=== PATIENT | female | born 1970 | race Caucasian/White ===

== ENCOUNTER 2023-10-13 10:04 | Outpatient (OUT) | payer BC, SELFPAY ==
[2023-10-13 10:31] LABS: Basophils Absolute Auto 0.1 10^3/uL (0.0-0.1); Basophils Percent Auto 0.8 % (0.2-2.0); Eosinophils Absolute Auto 0.1 10^3/uL (0.0-0.7); Hematocrit 43.9 % (36.0-48.0); Hemoglobin 14.5 g/dL (12.0-16.0); Immature Granulocytes Abs Auto 0.02 10^3/uL (0.00-0.03); Immature Granulocytes Pct Auto 0.3 % (0.0-0.5); Lymphocytes Absolute Auto 1.3 10^3/uL (1.2-3.8); Lymphocytes Percent Auto 21.4 % (20.5-60.0); Mean Corpuscular Volume 93.8 fL (81.0-99.0); Mean Platelet Volume 10.2 fL (9.5-13.5); Monocytes Absolute Auto 0.4 10^3/uL (0.3-0.8); Monocytes Percent Auto 6.4 % (1.7-12.0); Neutrophils Absolute Auto 4.3 10^3/uL (1.4-6.5); Neutrophils Percent Auto 70.1 % (43.0-75.0); Platelet Count 197 10^3/uL (150-450); Red Blood Count 4.68 10^6/uL (4.20-5.40); Red Cell Distribution Width 12.5 % (11.0-15.0); White Blood Count 6.1 10^3/uL (4.0-11.0)
[2023-10-13 10:32] LABS: Bilirubin Urine NEGATIVE (NEGATIVE); Blood Urine LARGE (NEGATIVE); Clarity Urine CLEAR (CLEAR); Color Urine LT. YELLOW (YELLOW); Glucose Urine UA NEGATIVE (NEGATIVE); Ketones Urine NEGATIVE (NEGATIVE); Leukocyte Esterase Urine TRACE (NEGATIVE); Nitrite Urine NEGATIVE (NEGATIVE); Protein Urine NEGATIVE (NEG/TRACE); Specific Gravity Urine 1.015 (1.005-1.025); Urobilinogen Urine 0.2 EU/dL (0.2-1.0); pH Urine 6.5 (5.0-9.0)
[2023-10-13 10:34] LABS: Urine Microscopic Indicated YES
[2023-10-13 11:02] LABS: Estimated Average Glucose 100 mg/dL; Glycohemoglobin A1C 5.1 % (4.5-6.2)
[2023-10-13 11:39] LABS: RBC Urine 20-50 #/HPF (0-2); WBC Urine 0-2 #/HPF (NONE SEEN)
[2023-10-13 11:40] LABS: Bacteria Urine TRACE #/HPF (NONE SEEN); Cast Seen? NONE SEEN #/LPF (NONE SEEN); Crystals Seen? None Seen #/HPF (None Seen); Mucus Urine TRACE (NONE SEEN); Squamous Epithelial Cell Urine FEW #/LPF (NONE/RARE); Transitional Epi Cells Urine FEW #/LPF (NONE SEEN)
[2023-10-13 11:57] LABS: Alanine Aminotransferase 26 U/L (14-59); Albumin Globulin Ratio 1.3; Albumin Level 4.2 g/dL (3.4-5.0); Alkaline Phosphatase 78 U/L (46-116); Anion Gap 14.6; Aspartate Amino Transferase 31 U/L (15-37); BUN Creatinine Ratio 15.1; Bilirubin Total 0.8 mg/dL (0.2-1.0); Calcium 9.1 mg/dL (8.5-10.1); Carbon Dioxide 28.5 mmol/L (21.0-32.0); Chloride 103 mmol/L (98-107); Chol HDL Ratio 1.9; Cholesterol 235 mg/dL (<=200); Estimated GFR (African America >60 (>=60); Estimated GFR (Non-African Ame >60 (>=60); Globulin 3.2 g/dL; Glucose 99 mg/dL (74-106); HDL Cholesterol 123 mg/dL (40-60); Potassium 4.1 mmol/L (3.5-5.1); Sodium 142 mmol/L (136-145); Thyroid Stimulating Hormone 2.573 uIU/mL (0.358-3.740); Total Protein 7.4 g/dL (6.4-8.2); Triglycerides 54 mg/dL (<=150); VLDL CHOLESTEROL 10.8 mg/dL
== END 2023-10-13 10:05 | disposition home or self-care (01) ==
LOC: LAB 10:09
PROVIDERS: PCP Nurse Practitioner; Visit Provider Nurse Practitioner
DX: Z00.00 Encounter for general adult medical examination without abnormal findings (principal)
CPT/HCPCS: 36415; 80053; 80061; 81001; 83036; 84443; 85025

== ENCOUNTER 2023-10-21 20:43 | Outpatient (REF) | payer BC, SELFPAY ==
[2023-10-27 11:11] LABS: Age Gdln ACOG Testing Note (.); HPV Aptima Negative (Negative); IGP, Aptima HPV, rfx 16/18,45 Note (.)
== END 2023-10-21 20:44 | disposition home or self-care (01) ==
LOC: LAB 20:43
PROVIDERS: PCP Nurse Practitioner; Visit Provider Nurse Practitioner
DX: Z01.419 Encounter for gynecological examination (general) (routine) without abnormal findings (principal)
CPT/HCPCS: 87624; 88175

== ENCOUNTER 2023-11-04 10:56 | Outpatient (OUT) | payer BC, SELFPAY ==
[2023-11-04 12:37] LABS: Bilirubin Urine NEGATIVE (NEGATIVE); Blood Urine LARGE (NEGATIVE); Clarity Urine CLEAR (CLEAR); Color Urine LT. YELLOW (YELLOW); Glucose Urine UA NEGATIVE (NEGATIVE); Ketones Urine NEGATIVE (NEGATIVE); Leukocyte Esterase Urine NEGATIVE (NEGATIVE); Nitrite Urine NEGATIVE (NEGATIVE); Protein Urine NEGATIVE (NEG/TRACE); Specific Gravity Urine <=1.005 (1.005-1.025); Urobilinogen Urine 0.2 EU/dL (0.2-1.0); pH Urine 6.5 (5.0-9.0)
[2023-11-04 12:47] LABS: Urine Microscopic Indicated YES
[2023-11-04 13:00] LABS: Mucus Urine NONE SEEN (NONE SEEN); Squamous Epithelial Cell Urine RARE #/LPF (NONE/RARE)
[2023-11-04 13:01] LABS: Bacteria Urine NONE SEEN #/HPF (NONE SEEN)
[2023-11-04 13:03] LABS: Cast Seen? NONE SEEN #/LPF (NONE SEEN); Crystals Seen? None Seen #/HPF (None Seen); WBC Urine 0-2 #/HPF (NONE SEEN)
== END 2023-11-04 10:57 | disposition home or self-care (01) ==
LOC: LAB 10:57
PROVIDERS: PCP Nurse Practitioner; Visit Provider Nurse Practitioner
DX: R39.9 Unspecified symptoms and signs involving the genitourinary system (principal)
CPT/HCPCS: 81001; 87086

== ENCOUNTER 2024-11-14 12:12 | Outpatient (OUT) | payer BC, SELFPAY ==
--- OUTSIDE RECORDS SUMMARY | 2024-11-09 08:43 | XMS_ITS | Encounter Summary ---
Author Organization [facility] tem Address [id number] [address] [place] [address] Care Team Providers Care Gem Cutter Name Role Phone Unavailable Primary Care Provider Unavailabl e Encounter Details Date Type Department Care Team (Latest Contact Info) Description 11/09/2024 8:43 AM EDT - 11/09/2024 11:59 PM EDT Hospital Encounter [facility] - [facility]amm[facility] [address] [place] [phone] Visit for screening mammogram Discharge Disposition: Home Social History Tobacco Use Types Packs/Day Years Used Date Smoking Tobacco: Never Assessed Childcare Answer Date Recorded Childcare Unknown 09/15/2018 Employment Answer Date Recorded Employment Unknown 09/15/2018 Comments No Sex and Gender Information Value Date Recorded Sex Assigned at Not on file Legal Sex Female 11:38 AM EDT Gender Identity Not on file Sexual Orientation Not on file documented as of this encounter Plan of Treatment Not on file documented as of this encounter Procedures Procedure Name Priority Date/Time Associated Diagnosis Comments MAMM SCREENING BILATERAL W CAD Routine 11/09/2024 9:00 AM EDT Visit for screening mammogram documented in this encounter Results * Mammography screening bilateral with CAD (11/09/2024 9:00 AM EDT) Anatomical Region Laterality Modality Breast Bilateral Mammography 11/09/2024 10:2 2 AM EDT Narrative 11/09/2024 10:32 AM EDT PAOLA EDWARDS 1970 [id number] EXAM: MAMM SCREENING BILATERAL W CAD, 11/09/2024 8:44 AM CLINICAL INDICATIONS: Screening, Visit for screening mammogram COMPARISON: 10/23/2022 and 10/27/2023 TECHNIQUE: Bilateral digital tomosynthesis MLO and CC views of the breasts were obtained, with creation of synthetic 2D views. Computer aided detection was utilized. FINDINGS: There are scattered areas of fibroglandular density. There are no suspicious masses, calcifications, or areas of architectural distortion. Stable postsurgical changes in the right breast IMPRESSION: No mammographic evidence of malignancy. BI-RADS: BI-RADS 2 - Benign RECOMMENDATION: Routine screening mammogram in 1 year. RISK ASSESSMENT: Tyrer-Cuzick score not calculated. The TC risk model does not apply to patients with a personal history of breast malignancy. Finalized by Brian Sanchez MD on 11/09/2024 10:32 AM 2 b MAMM 1 YR FDA Accredited Performing Facility: [facility] - Mammography/DEXA Imaging [address] [facility] [address] Procedure Note Brian Sanchez MD - 11/09/2024 PAOLA EDWARDS 1970 [id number] EXAM: MAMM SCREENING BILATERAL W CAD, 11/09/2024 8:44 AM CLINICAL INDICATIONS: Screening, Visit for screening mammogram COMPARISON: 10/23/2022 and 10/27/2023 TECHNIQUE: Bilateral digital tomosynthesis MLO and CC views of the breastswere obtained, with creation of synthetic 2D views. Computer aideddetection was utilized. FINDINGS: There are scattered areas of fibroglandular density. There are no suspicious masses, calcifications, or areas of architecturaldistortion. Stable postsurgical changes in the right breast IMPRESSION: No mammographic evidence of malignancy. BI-RADS: BI-RADS 2 - Benign RECOMMENDATION: Routine screening mammogram in 1 year. RISK ASSESSMENT: Tyrer-Cuzick score not calculated. The TC risk model does not apply topatients with a personal history of breast malignancy. Finalized by Brian Sanchez MD on 11/09/2024 10:32 AM 2 b MAMM 1 YR FDA Accredited Performing Facility: [facility] - Mammography/DEXA Imaging [address] [facility] [address] us Grace Iyer TRAVELING ELECTRICIAN-PLATE FURNACE OPERATOR IMG MAMMOGRAPHY ORDERAB LES Final Result documented in this encounter Visit Diagnoses Diagnosis Visit for screening mammogram documented in this encounter
--- OUTSIDE RECORDS SUMMARY | 2024-11-14 12:17 | XMS_ITS | Encounter Summary ---
Author Organization [facility] Address [facility] [place] [address] Care Team Providers Care Marine Pipe Welder Name Role Phone Low Hamilton MD Primary Care Provider [phone] Source Comments In the event this information is protected by the Federal Confidentiality of Alcohol and Drug AbusePatient Records regulations: The Federal rules restrict any use of the information to criminally investigate or prosecute any alcohol or drug abuse patient.[facility] Encounter Details Date Type Department Care Team (Latest Contact Info) Description 06/15/2018 H&P External-NonCCF Provider, External, PA-C Do not enter address information under generic External Provider. Social History Tobacco Use Types Packs/Day Years Used Date Smoking Tobacco: Former Cigarettes Q uit: 04/07/2013 Alcohol Use Standard Drinks/Week Comments Not Asked 0 (1 standard drink = 0.6 oz pur e alcohol) Comments No Sex and Gender Information Value Date Recorded Sex Assigned at Not on file Legal Sex Female 8:35 AM EST Gender Identity Not on file Sexual Orientation Not on file documented as of this encounter Functional Status * Are you deaf or do you have serious difficulty hearing? Answer Date of Assessment Author No 11/09/2014 2:42 PM EDT Chanel Díaz MA * Are you blind or do you have serious difficulty seeing, even when wearing glasses? Answer Date of Assessment Author No 11/09/2014 2:42 PM Chanel Last MA * Do you have serious difficulty walking or climbing stairs? Answer Date of Assessment Author No 11/09/2014 2:42 PM Chanel Last MA * Do you have difficulty dressing or bathing? Answer Date of Assessment Author No 11/09/2014 2:42 PM Chanel Last MA * Because of a physical, mental, or emotional condition, do you have difficulty doing errands alone such as visiting a doctor's office or shopping? Answer Date of Assessment Author No 11/09/2014 2:42 PM Chanel Last MA documented as of this encounter Mental Status * Because of a physical, mental, or emotional condition, do you have serious difficulty concentrating, remembering, or making decisions? Answer Entry Date Author No 11/09/2014 2:42 PM Chanel Last MA documented in this encounter Plan of Treatment Not on file documented as of this encounter Visit Diagnoses Not on filedocumented in this encounter Care Teams Marine Pipe Welder Relationship Specialty Start Date End Date Low Hamilton MD [address] [place] [address] PCP - General Family Medicine 06/22/17 documented as of this encounter
--- OUTSIDE RECORDS SUMMARY | 2024-11-14 12:17 | XMS_ITS | Encounter Summary ---
Author Organization [facility] Address [address] [place] [address] Care Team Providers Care Electrical Continuity Inspector Name Role Phone Low Hamilton MD Primary Care Provider [phone] Grace Iyer TRUCK BRACER Unavailable [phone] Encounter Details Date Type Department Care Team (Late st Contact Info) Description 11/08/2024 Refill [facility] [address] [place] [address] Grace Iyer, TRUCK BRACER [address] [place] [address] Major depressive disorder, recurrent, moderate (HCC) (Primary Dx); BETO (generalized anxiety disorder) Social History Tobacco Use Types Packs/Day Years Used Date Smoking Tobacco: Former Cigarettes 0.5 20 1 4 - 2013 Smokeless Tobacco: Never Alcohol Use Standard Drinks/Week Comments Not Currently 0 (1 standard drink = 0.6 oz pure alcohol) caffine:coffie 3cups daily and tea occasionally B1300 Health Literacy Answer Date Recor ded How often do you need to hav e someone help you when you read instructions, pamphlets, or other written material from your doctor or pharmacy? Never 12/23/2023 Social Connection and Isolation Panel [NHANES] A nswer Date Recorded In a typical week, how many times do you talk on the phone with family, friends, or neighbors? Once a week 12/23/2023 How often do you get togethe r with friends or relatives? Patient declined 12/23/2023 How often do you attend congregation or anabaptism serv ices? Patient declined 12/23/2023 Do you belong to any clubs o r organizations such as congregation groups, unions, fraternal or athletic groups, or school groups? Patient declined 12/23/2023 How often do you attend meet ings of the clubs or organizations you belong to? Patient declined 12/23/2023 Are you , , di vorced, , never , or living with a partner? 12/23/2023 AUDIT-C Answer Date Recorded Q1: How often do you have a drink containing alc ohol? Monthly or less 12/23/2023 Q2: How many drinks containi ng alcohol do you have on a typical day when you are drinking? 1 or 2 12/23/2023 Q3: How often do you have si x or more drinks on one occasion? Never 12/23/2023 Overall Financial Resource Strain (CARDIA) Answe r Date Recorded How hard is it for you to pa y for the very basics like food, housing, medical care, and heating? Patient declined 12/23/2023 PHQ-2 Answer Date Recorded Patient Health Questionnaire-2 Score 1 06/29/2023 [facility] of Occupat ional Health - Occupational Stress Questionnaire Answer Date Recorded Do you feel stress - tense, restless, nervous, or anxious, or unable to sleep at night because your mind is troubled all the time - these days? Rather much 12/23/2023 Exercise Vital Sign Answer Date Recorde d On average, how many days pe r week do you engage in moderate to strenuous exercise (like a brisk walk)? 3 days On average, how many minutes do you engage in exercise at this level? Patient declined 12/23/2023 Hunger Vital Sign Answer Date Recorded Within the past 12 months, y ou worried that your food would run out before you got the money to buy more. Patient declined Within the past 12 months, t he food you bought just didn't last and you didn't have money to get more. Patient declined PRAPARE - Transportation Answer Date Re corded In the past 12 months, has l ack of transportation kept you from medical appointments or from getting medications? No 12/05 In the past 12 months, has l ack of transportation kept you from meetings, work, or from getting things needed for daily living? No 12/23/2023 Housing Stability Vital Sign Answer Dmitriy e Recorded In the last 12 months, was t here a time when you were not able to pay the mortgage or rent on time? No 12/23/2023 Number of Times Moved in the Last Year Not on fi le 12/23/2023 At any time in the past 12 m [facility] [place], were you homeless or living in a fdc (including now)? No 12/23/2023 Comments Unknown Sex and Gender Information Value Date Recorded Sex Assigned at Not on file Legal Sex Female 7:26 PM EDT Gender Identity Not on file Sexual Orientation Not on file documented as of this encounter Plan of Treatment Upcoming Encounters Date Type Department Care Team (Late st Contact Info) Description 11/21/2024 6:00 PM EDT Office Visit [facility] [address] [place] [address] Grace Iyer NP [address] [place] [phone] documented as of this encounter Goals Goal Patient Goal Type Associated Problems Recent Progress Patient-Stated? Author Help patient manage antidepressant medication Care Plan Patient on antidepressant monitoring plan Lynne Barry Baseline PHQ-9 Care Plan Baseline PHQ-9 Lynne Barry documented as of this encounter Visit Diagnoses Diagnosis Major depressive disorder, recurrent, moderate (HCC)- Primary Major depressive disorder, recurrent episode, moderate BETO (generalized anxiety disorder) Generalized anxiety disorder documented in this encounter Additional Health Concerns Active Problems Noted Date Diagnosed Date Patient on antidepressant monitoring plan 2024 Baseline PHQ-9 08/08/2024 documented as of this encounter Care Teams Electrical Continuity Inspector Relationship Specialty Start Date End Date Low Hamilton MD [address] [place] [phone] PCP - General Family Medicine 05/12/23 Grace Iyer NP [address] [place] [address] PCP - [place] Commercial 07/06/23 documented as of this encounter
--- OUTSIDE RECORDS SUMMARY | 2024-11-14 12:17 | XMS_ITS | Encounter Summary ---
Author Organization [facility] Address [address] [place] [address] Care Team Providers Care Wedding Day Coordinator Name Role Phone Low Hamilton MD Primary Care Provider [phone] Grace Iyer COOKY MACHINE OPERATOR Unavailable [phone] Reason for Visit * Reason Comments Med Refill Encounter Details Date Type Department Care Team (Late st Contact Info) Description [facility] [address] [place] [address] Low Hamilton MD [address] [place] [address] Psoriasis, unspecified ; Other psoriasis Social History Tobacco Use Types Packs/Day Years Used Date Smoking Tobacco: Former Cigarettes 0.5 20 1 4 - 2013 Smokeless Tobacco: Never Alcohol Use Standard Drinks/Week Comments Not Currently 0 (1 standard drink = 0.6 oz pure alcohol) caffine:coffie 3cups daily and tea occasionally PHQ-2 Answer Date Recorded Patient Health Questionnaire-2 Score 1 06/29/2023 Comments Unknown Sex and Gender Information Value Date Recorded Sex Assigned at Not on file Legal Sex Female 7:26 PM EDT Gender Identity Not on file Sexual Orientation Not on file documented as of this encounter Miscellaneous Notes * Telephone Encounter - Lynne So - 12/15/2023 1:56 PM EDT Patient said she use to have a prescription for clobetasol 0.05% scalp solution through Dr. Duran would like another order. AN documented in this encounter Plan of Treatment Upcoming Encounters Date Type Department Care Team (Late st Contact Info) Description 11/21/2024 6:00 PM EDT Office Visit [facility] [address] [place] [address] Grace Iyer NP [address] [place] [address] documented as of this encounter Visit Diagnoses Diagnosis Psoriasis, unspecified Other psoriasis Other psoriasis documented in this encounter Care Teams Wedding Day Coordinator Relationship Specialty Start Date End Date Low Hamilton MD [address] [place] [phone] PCP - General Family Medicine 05/12/23 Grace Iyer NP [address] [place] [address] PCP - Nasrin Romero 07/06/23 documented as of this encounter
--- OUTSIDE RECORDS SUMMARY | 2024-11-14 12:17 | XMS_ITS | Encounter Summary ---
Author Organization [facility] Address [address] [place] [address] Care Team Providers Care Senior Corporate Strategy Manager Name Role Phone Low Hamilton MD Primary Care Provider [phone] Grace Iyer BAT CARRIER Unavailable [phone] Encounter Details Date Type Department Care Team (Late st Contact Info) Description 11/09/2024 External Result [facility] [address] [place] [address] Grace Iyer, SIVAN [address] [place] [address] Social History Tobacco Use Types Packs/Day Years Used Date Smoking Tobacco: Former Cigarettes 0.5 20 2013 Smokeless Tobacco: Never Alcohol Use Standard [...] declined 12/23/2023 How often do you attend mosque or faith serv ices? Patient declined 12/23/2023 Do you belong to any clubs o r organizations such as mosque groups, unions, fraternal or athletic groups, or [...] Recorded Patient Health Questionnaire-2 Score 1 06/29/2023 [facility] of Occupat ional [facility] - Occupational Stress Questionnaire Answer Date Recorded [...] any time in the past 12 m [facility], were you homeless or living in a residential (including now)? No 12/23/2023 Comments Unknown Sex and Gender Information Value Date Recorded Sex Assigned at Not on file Legal Sex Female 7:26 PM EDT Gender Identity Not on file Sexual Orientation Not on file documented as of this encounter Plan of Treatment Upcoming Encounters Date Type Department Care Team (Late st Contact Info) Description 11/21/2024 6:00 PM EDT Office Visit [facility] [address] [place] [address] Grace Iyer, SIVAN [address] [place] [address] documented as of this encounter Goals Goal Patient Goal Type Associated Problems Recent Progress Patient-Stated? Author Help patient manage antidepressant medication Care Plan Patient on antidepressant monitoring plan Lynne Barry Baseline PHQ-9 Care Plan Baseline PHQ-9 Lynne Barry documented as of this encounter Procedures Procedure Name Priority Date/Time Associated Diagnosis Comments BI MAMMOGRAM SCREENING TOMOSYNTHESIS BILATERAL 11/09/2024 10:33 AM EDT documented in this encounter Results * Bilateral screening mammogram with tomosynthesis (11/09/2024 10:33 AM EDT) Anatomical Region Laterality Modality Breast Bilateral Mammography 11/09/2024 10:3 3 AM EDT Narrative 11/09/2024 10:32 AM EDT [facility] [id number] EXAM: MAMM SCREENING BILATERAL W CAD, 11/09/2024 [...] 10:32 AM 2 b MAMM 1 YR [facility] Accredited Performing Facility: [facility] - Mammography/DEXA Imaging [address] [facility] [address] Procedure Note Radiology, Radiologist, - 11/09/2024 THIS EXAM WAS PERFORMED AT [facility] 1972 [id number] EXAM: MAMM SCREENING BILATERAL W CAD, 11/09/2024 [...] 10:32 AM 2 b MAMM 1 YR [facility] Accredited Performing Facility: [facility] - Mammography/DEXA Imaging [address] [facility] [address] Grace Iyer BAT CARRIER IMG BI PROCEDURES Final Result documented in this encounter Visit Diagnoses Not on filedocumented in this encounter Additional Health Concerns Active Problems Noted Date Diagnosed Date Patient on antidepressant monitoring plan 2024 Baseline PHQ-9 08/08/2024 documented as of this encounter Care Teams Senior Corporate Strategy Manager Relationship Specialty Start Date End Date Low Hamilton MD [address] [place] [address] PCP - General Family Medicine 05/12/23 Grace Iyer NP [address] [place] [address] PCP - [place] Commercial 07/06/23 documented as of this encounter
--- OUTSIDE RECORDS SUMMARY | 2024-11-14 12:17 | XMS_ITS ---
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 Past Treatment and Therapy Plans NON-CHEMO 1 Plan Name Start Date Discontinue Date Treatment Medications Discontinue Reason Plan Provider Cycles NS 500ML IV DURING VISIT 06/09/2013 No medications scheduled. Treatment Complete Aaron Watts MD 1 of 1 cycle started ONCOLOGY REGIMEN Plan Name Start Date Discontinue Date Treatment Medications Discontinue Reason Plan Provider Cycles TRASTUZUMAB 11/09 D1 - Q21D 4 trastuzumab iv piggyback (HERCEPTIN) Treatment Complete Aaron Watts MD 2 of 2 cycles started
--- OUTSIDE RECORDS SUMMARY | 2024-11-14 12:17 | XMS_ITS | Clinical Summary ---
Author Organization [facility] Address [facility] [place] [address] Care Team Providers Care Hostage Negotiator Name Role Phone Low Hamilton MD Primary Care Provider [phone] Allergies No known active allergies Medications CALCIUM ORAL Take by mouth. Active MULTIVITAMIN ORAL Take by mouth. Active Cyanocobalamin (VITAMIN B-12) 1,000 mcg subl Dissolve under the tongue. Active tamoxifen (NOLVADEX) 20 mg tabletIndicatio ns:DCIS (ductal carcinoma in situ),Nausea Take 1 tablet by mouth once daily. 30 tablet 11 06/23/2014 Active magnesium (MAGNACAPS) 100 mg capIndications: Leg swelling Take 100 mg by mouth once daily. 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 Social History Tobacco Use Types Packs/Day Years [...] on file Sexual Orientation Not on file Last Filed Vital Signs Vital Sign Reading Time Taken Comments Blood Pressure 130/82 11/09/2014 2:42 PM EDT Pulse 75 10/02/2014 1:28 PM EDT Temperature 36.9 C (98.4 F) 10/02/2014 1:28 PM EDT Respiratory Rate 20 05/18/2014 1:33 PM EST Oxygen Saturation 97% 05/18/2014 1:33 PM EST Inhaled Oxygen Concentration - - Weight 68 kg (150 lb) 11/09/2014 2:42 PM EDT Height 166.4 cm (5' 5.51 ) 11/09/2014 2:42 PM ED T Body Mass Index 24.57 11/09/2014 2:42 PM EDT Plan of Treatment Health Maintenance Due Date Last Done Comments Anxiety Screening 02/06/1990 Depression Screening 02/06/1990 HIV Screening 02/06/1990 Hepatitis C Screening 02/06/1990 DTaP,Tdap,Td Vaccine (1 - Tdap) 02/06/1991 Hepatitis B Vaccine (1 of 3 - 19+ 3-dose series) 02/06 Cervical Cancer Screening 02/06/[address] Colonography 02/06/2017 Cologuard (FIT-DNA) 02/06/2017 Colonoscopy 02/06/2017 Colorectal Cancer Screening 02/06/2017 Diabetes Screening 02/06/2017 Fecal Occult Blood 02/06/2017 Lipid Screening 02/06/2017 Sigmoidoscopy 02/06/2017 Pneumococcal Vaccine: 50+ (1 of 1 - PCV) 02/06/2022 Shingrix Vaccine (1 of 2) 02/06/2022 Influenza Vaccine (#1) 2024 Care Teams Hostage Negotiator Relationship Specialty Start Date End Date Low Hamilton MD [address] [place] [address] PCP - General Family Medicine 06/22/17
--- OUTSIDE RECORDS SUMMARY | 2024-11-14 12:17 | XMS_ITS | Encounter Summary ---
Author Organization [facility] Address [address] [place] [address] Care Team Providers Care Lumber Bearer Name Role Phone Low Hamilton MD Primary Care Provider [phone] Grace Iyer COMMISSIONER OF CONCILIATION Unavailable [phone] Reason for Visit * Reason Comments Med Refill Encounter Details Date Type Department Care Team (Late st Contact Info) Description 12/28/2023 Refill [facility] [address] [place] [address] Low Hamilton MD [address] [place] [address] Social History Tobacco Use Types Packs/Day Years [...] declined 12/23/2023 How often do you attend evangelical or anabaptism serv ices? Patient declined 12/23/2023 Do you belong to any clubs o r organizations such as evangelical groups, unions, fraternal or athletic groups, or [...] Recorded Patient Health Questionnaire-2 Score 1 06/29/2023 [facility] of Occupat ional [facility] - Occupational Stress Questionnaire Answer Date Recorded [...] any time in the past 12 m [facility], were you homeless or living in a [...] Office Visit [facility] [address] [place] [address] Grace Iyer NP [address] [place] [address] documented as of this encounter Visit Diagnoses Not on filedocumented in this encounter Care Teams Lumber Bearer Relationship Specialty Start Date End Date Low Hamilton MD [address] [place] [phone] PCP - General Family Medicine 05/12/23 Grace Iyer NP [address] [place] [address] PCP - [place] Commercial 07/06/23 documented as of this encounter
--- OUTSIDE RECORDS SUMMARY | 2024-11-14 12:17 | XMS_ITS | Encounter Summary ---
Author Organization [facility] Address [address] [place] [address] Care Team Providers Care Crew Scheduler Name Role Phone Low Hamilton MD Primary Care Provider [phone] Grace Iyer FLOOR WORKER Unavailable [phone] Encounter Details Date Type Department Care Team (Late st Contact Info) Description 12/24/2023 Orders Only [facility] [address] [place] [id number] Scarlet Caal MD [address] [place] [address] Social History Tobacco Use Types Packs/Day Years Used Date Smoking Tobacco: Former Cigarettes 0.5 20 1 2013 Smokeless Tobacco: Never Alcohol Use Standard [...] declined 12/23/2023 How often do you attend gnosticism or cheondoism serv ices? Patient declined 12/23/2023 Do you belong to any clubs o r organizations such as gnosticism groups, unions, fraternal or athletic groups, or [...] Recorded Patient Health Questionnaire-2 Score 1 06/29/2023 [facility] - Occupational Stress Questionnaire Answer [...] any time in the past 12 m [facility], were you homeless or living in a correction (including now)? No 12/23/2023 Comments Unknown Sex [...] Office Visit [facility] [address] [place] [address] Grace Iyer NP [address] [place] [address] documented as of this encounter Procedures Procedure Name Priority Date/Time Associated Diagnosis Comments SCANNED LABS Routine 12/24/2023 1:27 PM EDT documented in this encounter Results * SCANNED LABS (12/24/2023 1:27 PM EDT) us Scarlet Caal MD LAB CHG PERFORMABLES Final Res ult documented in this encounter Visit Diagnoses Not on filedocumented in this encounter Care Teams Crew Scheduler Relationship Specialty Start Date End Date Low Hamilton MD [address] [place] [address] PCP - General Family Medicine 05/12/23 Grace Iyer NP [address] [place] [address] PCP - [place] [employer] 07/06/23 documented as of this encounter
--- OUTSIDE RECORDS SUMMARY | 2024-11-14 12:17 | XMS_ITS | Encounter Summary ---
Author Organization [facility] Address [address] [place] [address] Care Team Providers Care Daycare Assistant Name Role Phone Low Hamilton MD Primary Care Provider [phone] Grace Iyer EMERGING TECHNOLOGIES DIRECTOR Unavailable [phone] Encounter Details Date Type Department Care Team (Late st Contact Info) Description 11/07[facility]2024 [facility] [address] [place] [address] Grace Iyer, EMERGING TECHNOLOGIES DIRECTOR [address] [place] [address] Social History Tobacco Use Types Packs/Day Years [...] declined 12/23/2023 How often do you attend tenriism or protestant serv ices? Patient declined 12/23/2023 Do you belong to any clubs o r organizations such as tenriism groups, unions, fraternal or athletic groups, or [...] Recorded Patient Health Questionnaire-2 Score 1 06/29/2023 [facility] ional [facility] - Occupational Stress Questionnaire Answer Date [...] in the past 12 m [facility], were you homeless or living in a fdc (including now)? No 12/23/2023 Comments Unknown Sex and Gender Information Value Date Recorded Sex Assigned at Not on file Legal Sex Female 7:26 PM EDT Gender Identity Not on file Sexual Orientation Not on file documented as of this encounter Miscellaneous Notes * Telephone Encounter - LUCERO VU - 11/07/2024 8:00 AM EDT Text Transport Aircrewman Good afternoon. This is Paola Grace calling. I am calling to ask Grace about helping my medication on my pros. I just figured that I would give you guys a call and hopefully somebody can reach back out to me. My number is [phone] and my date of is [phone]. Thank you. documented in this encounter Plan of Treatment Upcoming Encounters Date Type Department Care Team (Late st Contact Info) Description 11/21/2024 6:00 PM EDT Office Visit [facility] [address] [place] [address] Grace Iyer NP [address] [place] [address] documented as of this encounter Goals Goal [...] documented as of this encounter Care Teams Daycare Assistant Relationship Specialty Start Date End Date Low Hamilton MD [address] [place] [address] PCP - General Family Medicine 05/12/23 Grace Iyer NP [address] [place] [address] PCP - [place] [employer] 07/06/23 documented as of this encounter
--- OUTSIDE RECORDS SUMMARY | 2024-11-14 12:17 | XMS_ITS | Encounter Summary ---
Author Organization [employer] [facility] Address [id number] [address] [place] [address] Care Team Providers Care Refinery Operator Gas Plant Name Role Phone Unavailable Primary Care Provider Unavailabl e Encounter Details Date Type Department Care Team (Latest Contact Info) Description 11/09/2024 Travel Social History Tobacco Use Types Packs/Day Years [...]
--- OUTSIDE RECORDS SUMMARY | 2024-11-14 12:17 | XMS_ITS | Encounter Summary ---
Author Organization [facility] Address [address] [place] [address] Care Team Providers Care Clip On Sunglasses Assembler Name Role Phone Low Hamilton MD Primary Care Provider [phone] Grace Iyer MOHS SURGEON/GENERAL DERMATOLOGIST Unavailable [phone] Encounter Details Date Type Department Care Team (Late Contact Info) Description 10/27/2023 External Result Encounter [facility] [address] [place] [address] Grace Iyer, SIVAN [address] [place] [address] Social History Tobacco Use Types Packs/Day Years [...] Encounters Date Type Department Care Team (Late Contact Info) Description 11/21/2024 6:00 PM EDT Office Visit [facility] [address] [place] [address] Grace Iyer, SIVAN [address] [place] [address] documented as of this encounter Procedures Procedure Name Priority Date/Time Associated Diagnosis Comments BI MAMMOGRAM SCREENING TOMOSYNTHESIS BILATERAL 10/27/2023 2:50 PM EDT documented in this encounter Results * Bilateral screening mammogram with tomosynthesis (10/27/2023 2:50 PM EDT) Anatomical Region Laterality Modality Breast Bilateral Mammography 10/27/2023 2:50 PM EDT Narrative 10/27/2023 2:49 PM EDT THIS EXAM WAS PERFORMED AT [facility] EXAM: MAMM SCREENING BILATERAL W CAD, 10/27/2023 1:13 PM CLINICAL INDICATIONS: Screening, Visit for screening mammogram. Right lumpectomy. COMPARISON: Multiple prior mammograms were viewed for comparison dating back to 02/10/2014 TECHNIQUE: Bilateral digital tomosynthesis MLO and CC views of the breasts were obtained, with creation of synthetic 2D views. Computer aided detection was utilized. FINDINGS: There are scattered areas of fibroglandular density. There are no suspicious masses, calcifications, or areas of architectural distortion. Stable posttreatment changes in the right breast. IMPRESSION: No mammographic evidence of malignancy. BI-RADS: BI-RADS 2 - Benign Recommendation: Routine screening mammogram in 1 year. Please consider supplemental screening with annual breast MRI alternating every 6 months with annual screening mammogram given personal history of breast cancer before the age of 50. Finalized by Shima De Paz MD on 10/27/2023 2:49 PM 2 b MAMM 1 YR Procedure Note Radiology, Radiologist, - 10/27/2023 THIS EXAM WAS PERFORMED AT [facility] EXAM: MAMM SCREENING BILATERAL W CAD, 10/27/2023 1:13 PM CLINICAL INDICATIONS: Screening, Visit for screening mammogram. Rightlumpectomy. COMPARISON: Multiple prior mammograms were viewed for comparison datingback to 02/10/2014 TECHNIQUE: Bilateral digital tomosynthesis MLO and CC views of the breasts wereobtained, with creation of synthetic 2D views. Computer aided detectionwas utilized. FINDINGS: There are scattered areas of fibroglandular density. There are no suspicious masses, calcifications, or areas of architecturaldistortion. Stable posttreatment changes in the right breast. IMPRESSION: No mammographic evidence of malignancy. BI-RADS: BI-RADS 2 - Benign Recommendation: Routine screening mammogram in 1 year. Please consider supplemental screening with annual breast MRI alternatingevery 6 months with annual screening mammogram given personal history ofbreast cancer before the age of 50. Finalized by Shima De Paz MD on 10/27/2023 2:49 PM 2 b MAMM 1 YR us Grace Iyer NP IMG BI PROCEDURES Final Result documented in this encounter Visit Diagnoses Not on filedocumented in this encounter Care Teams Clip On Sunglasses Assembler Relationship Specialty Start Date End Date Low Hamilton MD [address] [place] [address] PCP - General Family Medicine 05/12/23 Grace Iyer NP [address] [place] [address] PCP - Nasrin Romero 07/06/23 documented as of this encounter
--- OUTSIDE RECORDS SUMMARY | 2024-11-14 12:17 | XMS_ITS | Encounter Summary ---
Author Organization [facility] Address [facility] [place] [address] Care Team Providers Care Spectacle Truer Name Role Phone Low Hamilton MD Primary Care Provider [phone] Source Comments In the event this information is protected by the Federal Confidentiality of Alcohol and Drug AbusePatient Records regulations: The Federal rules restrict any use of the information to criminally investigate or prosecute any alcohol or drug abuse patient.[facility] Encounter Details Date Type Department Care Team (Latest Contact Info) Description 12/03/2017 H&P External-NonCCF Provider, External, PA-C Do not [...] on filedocumented in this encounter Care Teams Spectacle Truer Relationship Specialty Start Date End Date Low Hamilton MD [address] [place] [address] PCP - General Family Medicine 06/22/17 documented as of this encounter
--- OUTSIDE RECORDS SUMMARY | 2024-11-14 12:17 | XMS_ITS | Encounter Summary ---
Author Organization [facility] Address [address] [place] [address] Care Team Providers Care Headliner Installer Name Role Phone Low Hamilton MD Primary Care Provider [phone] Grace Iyer LEAVE MANAGER Unavailable [phone] Encounter Details Date Type Department Care Team (Late st Contact Info) Description 12/28/2023 Orders Only [facility] [address] [place] [phone] Scarlet Caal MD [address] [place] [address] Social History Tobacco Use Types Packs/Day Years [...] declined 12/23/2023 How often do you attend denominational or sabianist serv ices? Patient declined 12/23/2023 Do you belong to any clubs o r organizations such as denominational groups, unions, fraternal or athletic groups, or [...] Recorded Patient Health Questionnaire-2 Score 1 06/29/2023 [facility] of Occupat ional [facility] - Occupational Stress Questionnaire Answer Date [...] any time in the past 12 m [facility], were you homeless or living in a prison (including now)? No 12/23/2023 Comments Unknown Sex [...] Office Visit [facility] [address] [place] [address] Grace Iyer NP [address] [place] [address] documented as of this encounter Procedures Procedure Name Priority Date/Time Associated Diagnosis Comments SCANNED LABS Routine 12/28/2023 11:25 AM EDT documented in this encounter Results * SCANNED LABS (12/28/2023 11:25 AM EDT) us Scarlet Caal MD LAB CHG PERFORMABLES Final Res ult documented in this encounter Visit Diagnoses Not on filedocumented in this encounter Care Teams Headliner Installer Relationship Specialty Start Date End Date Low Hamilton MD [address] [place] [address] PCP - General Family Medicine 05/12/23 Grace Iyer NP [address] [place] [address] PCP - [employer] 07/06/23 documented as of this encounter
--- OUTSIDE RECORDS SUMMARY | 2024-11-14 12:17 | XMS_ITS | Clinical Summary ---
Author Organization [facility] Address [address] [place] [address] Care Team Providers Care Bass Mechanism Maker Name Role Phone Low Hamilton MD Primary Care Provider [phone] Grace Iyer LAYER OFF Unavailable [phone] Allergies Active Allergy Reactions Criticality Noted Date Comments Azithromycin Diarrhea Medium 05/13/2023 Medications Calcium Carbonate (CALCIUM 500 PO) Take 1 tablet by mouth 1 (one) time each day Active MULTIPLE VITAMINS-IRON PO Take by mouth Active cyanocobalamin (Vitamin B-12) 100 MCG tablet Take 100 mcg by mouth in the morning. Active oxybutynin XL (Ditropan-XL) 5 MG 24 hr tablet Take 5 mg by mouth Daily 4 Active clobetasol (Temovate) 0.05 % external solutionIndicat ions:Psoriasis/ like disorders Apply topically 2 (two) times a day to affected area 50 mL 2 4 Active ALPRAZolam (Xanax) 0.5 MG tabletIndicatio ns:BETO (generalized anxiety disorder) Take 1 tablet (0.5 mg) by mouth every 12 (twelve) hours if needed for anxiety for up to 10 days 20 tablet 5 Active traZODone (Desyrel) 50 MG tabletIndicatio ns:Insomnia due to medical condition Take 1 tablet (50 mg) by mouth as needed at bedtime for sleep 90 tablet 1 5 01/09/20 25 Active FLUoxetine (PROzac) 10 MG capsuleIndicati ons:BETO (generalized anxiety disorder),Major depressive disorder, recurrent, moderate (HCC) Take 1 capsule (10 mg) by mouth Daily Total dose is 30mg daily 30 capsule 1 5 12/09/19 25 Active FLUoxetine (PROzac) 20 MG capsuleIndicati ons:BETO (generalized anxiety disorder),Major depressive disorder, recurrent, moderate (HCC) Take 1 capsule (20 mg) by mouth Daily Total dose is 30mg daily 30 capsule 1 5 12/09/19 25 Active FLUoxetine (PROzac) 20 MG capsuleIndicati ons:BETO (generalized anxiety disorder),Major depressive disorder, recurrent, moderate (HCC) Take 1 capsule (20 mg) by mouth Daily 30 capsule 1 5 11/09/19 25 Discontinu ed(Reorder ) Active Problems Problem Noted Date Diagnosed Date Major depressive disorder, recurrent, moderate 0 07/07/2024 Assessment & Plan (10/10/2024 6:38 AM EDT): Current meds: sertraline and prn xanax At last appt we added 50mg dose sertraline at evening time for a total of 150mg daily Assessment & Plan (07/07/2024 1:34 PM EDT): Current meds: sertraline and prn xanax PHQ 9=8 Add 50mg dose sertraline at evening time COVID 05/16/2024 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 OAB (overactive bladder) 01/05/2024 Assessment & Plan (07/07/2024 1:16 PM EDT): Oxybutynin XL is working well Sees urology for this Microscopic hematuria 11/04/2023 Assessment & Plan (01/05/2024 3:49 PM EDT): Continue with urology Encntr for coal chemist exam (general) (routine) w/o abn findings 10/21/2023 Assessment & Plan (10/21/2023 11:39 AM EDT): Reviewed Ht/Wt/BMI Recommend eye exam yearly Recommend dental exams twice a year Fu per PAP indications Monthly BSE K Y lubricant for dysparuina Exercises is recommended most days of the week Follow up yearly and prn Menopausal vasomotor syndrome 10/21/2023 Assessment & Plan (10/21/2023 11:38 AM EDT): No estrogen d/t breast cancer Offered lexapro or effexor off label Or gabapentin She will think about it Screening mammogram for breast cancer 09/28/2023 Assessment & Plan (09/28/2023 2:03 PM EDT): Due 10/24/23 at [facility] examination 09/28/2023 Assessment & Plan (10/10/2024 6:41 AM EDT): Reviewed Ht/Wt/BMI Recommend eye exam yearly Recommend dental exams twice a year Balance work/leisure activities Exercises is recommended most days of the week (appropriate as chronic conditions allow) Follow up yearly and prn Assessment & Plan (09/28/2023 2:03 PM EDT): Reviewed Ht/Wt/BMI Recommend eye exam yearly Recommend dental exams twice a year Balance work/leisure activities Exercises is recommended most days of the week (appropriate as chronic conditions allow) Follow up yearly and prn Insomnia due to medical condition 08/03/2023 Assessment & Plan (10/10/2024 6:37 AM EDT): Meds: trazodone uses prn Uses it 2-3 times per week Assessment & Plan (07/07/2024 1:15 PM EDT): Meds: trazodone uses prn Uses it 2-3 times per week Assessment & Plan (01/05/2024 3:49 PM EDT): Improving, will use prn trazadone Assessment & Plan (09/28/2023 2:03 PM EDT): Overall feels that trazodone is helping, some nights not, but overall feels no dose change needed Assessment & Plan (08/03/2023 2:37 PM EDT): Will add trazodone, may take nightly or prn Advised of how med works and monitor for worsening in mood/depression BETO (generalized anxiety disorder) 05/13/2023 Assessment & Plan (10/10/2024 6:38 AM EDT): Current meds: sertraline and prn xanax a few times per month Med agreement signed: 07/07/24 Last appt increased to total of 150mg sertraline Assessment & Plan (07/07/2024 1:34 PM EDT): Current meds: sertraline and prn xanax a few times per month, from last refill has about 6 pills left BETO 7=13 Med agreement signed: 07/07/24 Add 50mg sertraline at evening 3 months Assessment & Plan (01/05/2024 3:50 PM EDT): Rare use of benzo, cont SSRI Fu in 6 months Assessment & Plan (09/28/2023 2:03 PM EDT): No changes in meds/doses Assessment & Plan (08/03/2023 2:36 PM EDT): Does feel she is making progress, does not feel ready to RTW 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 which 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/04/23 No change to dose of sertraline Fu in office in 8 week Assessment & Plan (06/29/2023 3:57 PM EDT): Does feel she is making progress, does not feel ready to RTW, she has reached out to a therapist who has help other co worker with feelings that she is experiencing, she is waiting on a call back Increase sertaline to 100mg daily Fu in 4 weeks Assessment & Plan (06/01/2023 6:38 PM EST): Will keep meds at current dose, and take off of work for a period of 4 weeks Keep fu appt, sooner if needed Recommend daily walks, meditation to help with symptoms Only has about 4 xanax left, I did provide about a 10 day supply of this OARRS reviwed Assessment & Plan (05/13/2023 4:02 PM EST): May continue to use xanax Hope with improve with use of SSRI History of breast cancer 05/18/2014 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 Assessment & Plan (10/10/2024 6:37 AM EDT): Hx of this Resolved Problems Problem Noted Date Diagnosed Date Resolved Date UTI symptoms 10/19/2023 07/07/2024 Depression 11/10/2013 07/07/2024 Assessment & Plan (01/05/2024 3:50 PM EDT): Cont sertarline Fu in 6 months , consider lowering dose Assessment & Plan (09/28/2023 2:03 PM EDT): No changes in meds/dose Assessment & Plan (08/03/2023 2:36 PM EDT): Cont sertraline at 100mg daily Fu in 8 weeks Assessment & Plan (06/29/2023 3:56 PM EDT): We will leave off work another 4 weeks Increase sertraline to 100mg daily Fu in 4 weeks Assessment & Plan (05/13/2023 4:01 PM EST): Will restart her sertraline at 25mg daily for 7 days, then increase to 50mg Fu in 6 weeks Take medication only as directed. This medication will take approximately 4-6 weeks to become effective. If any suicidal thoughts, thoughts of hurting others, or hallucinations contact the office or proceed to the Emergency Room for mental health evaluation. Medication may cause dry mouth, dizziness, and in some cases worsening in depression symptoms. Please contact the office if these occur. Encounters Date Type Department Care Team Description 11/09/2024 External Result Encounter [facility] [address] [place] [address] Grace Iyer NP 11/08/2024 Refill [facility] [address] [place] [address] Grace Iyer NP Major depressive disorder, recurrent, moderate (HCC) (Primary Dx); BETO (generalized anxiety disorder) 11/07/2024 Telephone [facility] [address] [place] [address] Grace Iyer NP 10/10/2024 1:00 PM EDT Office Visit [facility] [address] [place] [address] Grace Iyer NP Insomnia due to medical condition (Primary Dx); Ductal carcinoma in situ (DCIS) of left breast; BETO (generalized anxiety disorder) ; Major depressive disorder, recurrent, moderate (HCC); Screening mammogram for breast cancer; Wellness examination 10/09/2024 Travel 09/06/2024 Refill [facility] [address] [place] [address] Grace Iyer NP BETO (generalized anxiety disorder) from Last 3 Months Immunizations Immunization Administration Dates Next Due Influenza, injectable, MDCK, preservative free, quadrivalent 02/28/2023 Zoster, Recombinant 02/28/2023 Family History Medical History Relation Name Comments Cancer Mother Lymphoma Mother Relation Name Status Comments Mother Social History Tobacco Use Types Packs/Day Years Used Date Smoking Tobacco: Former Cigarettes 0.5 20 1 994 - 2014 Smokeless Tobacco: Never Tobacco Cessation:Counseling Given: Not Answered Alcohol Use Standard Drinks/Week Comments Not Currently [...] How often do you attend mosque or hoahaoism serv ices? Patient declined 12/23/2023 Do you [...] Recorded Patient Health Questionnaire-2 Score 1 06/29/2023 [facility] - Occupational Stress [...] any time in the past 12 m [facility], were you homeless or living in a [facility] (including now)? No 12/23/2023 Comments Unknown Sex and Gender Information Value Date Recorded Sex Assigned at Not on file Legal Sex Female 7:26 PM EDT Gender Identity Not on file Sexual Orientation Not on file Last Filed Vital Signs Vital Sign Reading Time Taken Comments Blood Pressure 116/76 10/10/2024 1:04 PM EDT Pulse 72 10/10/2024 1:04 PM EDT Temperature 36.7 C (98.1 F) 10/10/2024 1:04 PM EDT Respiratory Rate 18 10/10/2024 1:04 PM EDT Oxygen Saturation 98% 10/10/2024 1:04 PM EDT Inhaled Oxygen Concentration - - Weight 52.7 kg (116 lb 3.2 oz) 10/10/2024 1:04 P M EDT Height 160 cm (5' 3 ) 01/05/2024 2:56 PM EDT Body Mass Index 20.58 01/05/2024 2:56 PM EDT Plan of Treatment Upcoming Encounters Date Type Department Care Team (Late st Contact Info) Description 11/21/2024 6:00 PM EDT Office Visit [facility] [address] [place] [phone] Grace Iyer NP [address] [place] [phone] Health Maintenance Due Date Last Done Comments CT Colonography 1972 FIT-DNA 1972 FIT 1972 FOBT 1972 Sigmoidoscopy 1972 Influenza Vaccine (#1) 2024 02/28/2023 Colonoscopy 11/06/2025 11/07/2015 Colorectal Cancer Screening 11/06/2025 Mammogram 11/09/2025 11/09/2024, 08/09/2024, 10/27/2023, Additional history exists Goals Goal Patient Goal Type Associated Problems Recent Progress Patient-Stated? Author Help patient manage antidepressant medication Care Plan Patient on antidepressant monitoring plan No Lynne So Baseline PHQ-9 Care Plan Baseline PHQ-9 No Lynne So Procedures Procedure Name Priority Date/Time Associated Diagnosis Comments BI MAMMOGRAM SCREENING TOMOSYNTHESIS BILATERAL 11/09/2024 10:33 AM EDT from Last 3 Months Results * Bilateral screening mammogram with tomosynthesis (11/09/2024 10:33 AM EDT) Anatomical Region Laterality Modality Breast Bilateral Mammography 11/09/2024 10:3 3 AM EDT Narrative 11/09/2024 10:32 AM EDT THIS EXAM WAS PERFORMED AT [facility] 1972 [id number] EXAM: MAMM SCREENING BILATERAL W CAD, 11/09/2024 [...] MAMM 1 YR FDA Accredited Performing Facility: [facility] Mammography/DEXA Imaging [address] [facility] [address] Procedure Note Radiology, Radiologist, - 11/09/2024 THIS EXAM WAS PERFORMED AT [facility] PAOLA STEWARD [facility] 1970 [id number] EXAM: MAMM SCREENING BILATERAL W CAD, 11/09/2024 [...] MAMM 1 YR FDA Accredited Performing Facility: [facility] - Mammography/DEXA Imaging [address] [facility] [address] Grace Iyer LAYER OFF IMG BI PROCEDURES Final Result from Last 3 Months Additional Health Concerns Active Problems Noted Date Diagnosed Date Patient on antidepressant monitoring plan 2024 Baseline PHQ-9 08/08/2024 Insurance [facility] Care Teams Bass Mechanism Maker Relationship Specialty Start Date End Date Low Hamilton MD [address] [place] [phone] PCP - General Family Medicine 05/12/23 Grace Iyer NP [address] [place] [address] PCP - [facility] 07/06/23
--- OUTSIDE RECORDS SUMMARY | 2024-11-14 12:18 | XMS_ITS | Encounter Summary ---
Author Organization [facility] Address [address] [place] [address] Care Team Providers Care Senior Javascript Engineer Name Role Phone Low Hamilton MD Primary Care Provider [phone] Grace Iyer TOLL RELIEF OPERATOR Unavailable [phone] Encounter Details Date Type Department Care Team (Late Contact Info) Description 10/27/2023 Orders Only [facility] [address] [place] [phone] Grace Iyer, SIVAN [address] [place] [phone] Social History Tobacco Use Types Packs/Day Years [...] Office Visit [facility] [address] [place] [phone] Grace Iyer, SIVAN [address] [place] [address] documented as of this encounter Procedures Procedure Name Priority Date/Time Associated Diagnosis Comments MAMMOGRAM, BILATERAL, SCREEN:* Routine 10/27/2023 2:59 PM EDT documented in this encounter Results * MAMMOGRAM, BILATERAL, SCREEN:* (10/27/2023 2:59 PM EDT) Anatomical Region Laterality Modality Radiographic Desiree ging Grace Iyer TOLL RELIEF OPERATOR IMG XR PROCEDURES Final Result documented in this encounter Visit Diagnoses Not on filedocumented in this encounter Care Teams Senior Javascript Engineer Relationship Specialty Start Date End Date Low Hamilton MD [address] [place] [phone] PCP - General Family Medicine 05/12/23 Grace Iyer NP [address] [place] [address] PCP - [facility] 07/06/23 documented as of this encounter
--- OUTSIDE RECORDS SUMMARY | 2024-11-14 12:18 | XMS_ITS | Clinical Summary ---
Author Organization [facility] tem Address [id number] [address] [place] [address] Care Team Providers Care Manager Adobe Name Role Phone Unavailable Primary Care Provider Unavailabl e Encounters Date Type Department Care Team Description 11/09/2024 8:43 AM EDT - 11/09/2024 11:59 PM EDT Hospital Encounter [facility] - Mammography/DEXA Imaging [address] [place] [phone] Visit for screening mammogram Discharge Disposition: Home 11/09/2024 Travel from Last 3 Months Family History Medical History Relation Name Comments Breast cancer Neg Hx Social History Tobacco Use Types Packs/Day Years [...] Sign Reading Time Taken Comments Blood Pressure - - Pulse - - Temperature - - Respiratory Rate - - Oxygen Saturation - - Inhaled Oxygen Concentration - - Weight 54.9 kg (121 lb) 10/27/2023 1:26 PM EDT Height 160 cm (5' 3 ) 10/27/2023 1:26 PM EDT Body Mass Index 21.43 10/27/2023 1:26 PM EDT Plan of Treatment Health Maintenance Due Date Last Done Comments Depression Screening 1984 Tobacco Screening 1984 DTaP,Tdap and Td Vaccines (1 - Tdap) 02/06/1991 Pap Smear 02/06/1993 Zoster (Shingles) Vaccine (2 of 2) 04/25/20232022 COVID-19 Vaccine (2023- 5 season) 2023 03/22/2021, 06/29/2020, 05/30/2020 Adult BMI Screening 10/26/2024 10/27/2023 Influenza Vaccine 12/05/2024 02/28/2023 Medical Devices Not on file Procedures Procedure Name Priority Date/Time Associated Diagnosis Comments MAMM SCREENING BILATERAL W CAD Routine 11/09/2024 9:00 AM EDT Visit for screening mammogram from Last 3 Months Results * Mammography screening bilateral with CAD (11/09/2024 9:00 AM EDT) Anatomical Region Laterality Modality Breast Bilateral Mammography 11/09/2024 10:2 2 AM EDT Narrative 11/09/2024 10:32 AM EDT PA[facility] 1970 [id number] EXAM: MAMM SCREENING BILATERAL W CAD, 11/09/2024 [...] MAMM 1 YR FDA Accredited Performing Facility: [facility] - Mammography/DEXA Imaging [address] [facility] [address] Procedure Note Brian Sanchez MD - 11/09/2024 PAOLA EDWARDS 1970 [id number] EXAM: MAMM SCREENING BILATERAL W CAD, 11/09/2024 [...] MAMM 1 YR FDA Accredited Performing Facility: [facility] - Mammography/DEXA Imaging [address] [facility] [address] Grace Iyer MANAGER ADMINISTRATIVE SERVICES-VAULT TELLER IMG MAMMOGRAPHY ORDERAB LES Final Result from Last 3 Months Insurance [facility] [place] [id number] LEONARDO
[2024-11-14 12:37] LABS: Hematocrit 40.5 % (36.0-48.0); Hemoglobin 13.5 g/dL (12.0-16.0); Immature Granulocytes Abs Auto 0.01 10^3/uL (0.00-0.03); Immature Granulocytes Pct Auto 0.2 % (0.0-0.5); Lymphocytes Absolute Auto 1.4 10^3/uL (1.2-3.8); Mean Corpuscular HGB Conc 33.3 g/dL (29.9-35.2); Mean Corpuscular Hemoglobin 30.8 pg (26.7-34.0); Mean Corpuscular Volume 92.3 fL (81.0-99.0); Platelet Count 200 10^3/uL (150-450); Red Blood Count 4.39 10^6/uL (4.20-5.40); White Blood Count 5.9 10^3/uL (4.0-11.0)
[2024-11-14 13:07] LABS: Alanine Aminotransferase 25 U/L (14-59); Albumin Globulin Ratio 1.5; Albumin Level 4.1 g/dL (3.4-5.0); Alkaline Phosphatase 75 U/L (46-116); Anion Gap 8.8; Aspartate Amino Transferase 20 U/L (15-37); Blood Urea Nitrogen 12.0 mg/dL (7.0-18.0); Calcium 9.5 mg/dL (8.5-10.1); Carbon Dioxide 30.1 mmol/L (21.0-32.0); Chloride 104 mmol/L (98-107); Cholesterol 213 mg/dL (<=200); Estimated GFR (African America >60 (>=60 mL/min/1.73m^2); Estimated GFR (Non-African Ame >60 (>=60 mL/min/1.73m^2); Globulin 2.8 g/dL; Glucose 127 mg/dL (74-106); HDL Cholesterol 118 mg/dL (40-60); Potassium 3.9 mmol/L (3.5-5.1); Sodium 139 mmol/L (136-145); Thyroid Stimulating Hormone 1.704 uIU/mL (0.358-3.740); Total Protein 6.9 g/dL (6.4-8.2); Triglycerides 50 mg/dL (<=150); VLDL CHOLESTEROL 10.0 mg/dL
[2024-11-14 13:25] LABS: Glucose Urine UA NEGATIVE (NEGATIVE)
[2024-11-14 13:36] LABS: Cast Seen? NONE SEEN #/LPF (NONE SEEN); Crystals Seen? Seen #/HPF (None Seen)
== END 2024-11-14 12:13 | disposition home or self-care (01) ==
PROVIDERS: PCP Nurse Practitioner; Visit Provider Nurse Practitioner
DX: Z00.00 Encounter for general adult medical examination without abnormal findings (principal)
CPT/HCPCS: 36415; 80053; 80061; 81001; 84443; 85025